=== PATIENT | male | born 2000 | race African-American/Black ===

== ENCOUNTER 2022-06-05 01:20 | Inpatient (IN) | payer MEDICAID ==
[2022-06-05] VITALS (53 sets, daily range): BP systolic 96–137; BP diastolic 56–86
[~2022-06-05] VITALS: Ht 175.3 cm; Wt 57.4 kg
[2022-06-05] MEDS ORDERED: EPINEPHRINE 1:1000 1 MG/ML AMP ONE (01:26)
[2022-06-05] MEDS ORDERED: DIPHENHYDRAMINE 50MG/ML VIAL IV ONE (01:45)
[2022-06-05] MEDS ORDERED: RACEPINEPHRINE 2.25% 0.5ML NEB VIAL HHN ONE (01:45)
[2022-06-05] MEDS ORDERED: TRANEXAMIC ACID 1,000 MG/10 ML IV ONE (01:45)
[2022-06-05] MEDS ORDERED: LORAZEPAM 2MG/ML CPJ IV ONE (01:45)
[2022-06-05] MEDS ORDERED: DEXAMETHASONE 10 MG/ML VIAL IV ONE (01:45)
[2022-06-05] MEDS ORDERED: PROPOFOL 10MG/ML 100ML 100 ML IV ONE ×2 (02:00→05:27)
[2022-06-05] MEDS ORDERED: FENTANYL CITRATE/PF 50MCG/ML 2ML VIAL IV ONE (02:00)
[2022-06-05 02:43] LABS: BASOPHILS % 0.6 % (0.0-2.0); EOSINOPHILS % 0.2 % (0.0-5.0); HEMOGLOBIN. 12.5 g/dL (14.0-18.0); LYMPHOCYTES % 35.9 % (20.0-50.0); MEAN CORPUSCULAR HEMOGLOBIN 22.9 pg (28.0-32.0); MEAN CORPUSCULAR VOLUME 71.3 fL (80.0-94.0); MEAN PLATELET VOLUME 6.7 fl (7.4-10.4); MONOCYTES % 8.3 % (2.0-8.0); PLATELET 435 x1000/uL (130-400); RED BLOOD CELL COUNT 5.47 mill/uL (4.7-6.1); RED CELL DISTRIBUTION WIDTH 16.7 % (11.6-14.6)
[2022-06-05] MEDS ORDERED: FENTANYL 2500MCG/250ML PMX 250 ML IV ONE ×2 (02:45→03:15)
[2022-06-05 02:59] LABS: CHLORIDE 110 mEq/L (98-107)
[2022-06-05] MEDS ORDERED: KCL 20 MEQ/100 ML IV SCH (04:00)
[2022-06-05] MEDS ORDERED: [UNRECOGNIZED DRUG - OTHER] IV SCH (04:00)
[2022-06-05 04:05] LABS: BG BASE EXCESS -7.6 mmol/L (-2.0-2.0); BG CARBOXYHEMOGLOBIN 0.4 % (0.5-1.5); BG DEOXYHEMOGLOBIN 0.5 % (0.0-5.0); BG FRACTION INSPIRED OXYGEN 60; BG HCO3 ACT 18.3 mmol/L (22.0-26.0); BG METHEMOGLOBIN 0.4 % (0.0-1.5); BG OXYGEN SATURATION 99.5 % (92.0-98.5); BG OXYHEMOGLOBIN 98.7 % (94.0-97.0); BG PCO2 38.8 mmHg (35.0-45.0); BG PH 7.292 (7.350-7.450); BG PO2 293.1 mmHg (75.0-100.0); BG SAMPLE SITE RIGHT RADIAL; BG TOTAL HEMOGLOBIN 13.3 g/dL (12.0-18.0); BG VENT MODE VENT - AC
[2022-06-05] MEDS ORDERED: SUCCINYLCHOLINE CHLORIDE 200MG/10ML IV ONE (09:29)
[2022-06-05] MEDS ORDERED: ETOMIDATE 2MG/ML 10ML VIAL IV ONE (09:29)
[2022-06-05] MEDS ORDERED: ONDANSETRON HCL 4MG/2ML INJ IV PRN (09:45)
[2022-06-05] MEDS ORDERED: RACEPINEPHRINE 2.25% 0.5ML NEB VIAL HHN PRN (09:45)
[2022-06-05] MEDS ORDERED: IPRATROPIUM/ALBUTEROL 0.5-3(2.5)MG/3ML NEB HHN PRN (09:45)
[2022-06-05] MEDS ORDERED: PROPOFOL 10MG/ML 100ML 100 ML IV NR (10:00)
[2022-06-05] MEDS ORDERED: PROPOFOL 10MG/ML 100ML 100 ML IV PRN (10:00)
[2022-06-05] MEDS: PROPOFOL 10MG/ML 100ML 100 ML IV PRN ×2 (10:30→19:29)
[2022-06-05] MEDS: FAMOTIDINE 20MG/2ML VIAL IV SCH ×2 (14:50→21:51)
[2022-06-05] MEDS: METHYLPREDNISOLONE SOD SUCC 125 MG/2 ML VIAL IV SCH ×3 (14:51→21:52)
[2022-06-05] MEDS: ENOXAPARIN 40MG/0.4ML SYR SUBCUT SCH (14:52)
[2022-06-05] MEDS: IPRATROPIUM/ALBUTEROL 0.5-3(2.5)MG/3ML NEB HHN SCH (20:38)
[2022-06-06] VITALS (63 sets, daily range): BP systolic 100–139; BP diastolic 54–89
[2022-06-06] MEDS: IPRATROPIUM/ALBUTEROL 0.5-3(2.5)MG/3ML NEB HHN SCH ×6 (00:05→20:15)
[2022-06-06] MEDS: PROPOFOL 10MG/ML 100ML 100 ML IV PRN ×2 (02:52→17:43)
[2022-06-06] MEDS ORDERED: FENTANYL 2500MCG/250ML PMX 250 ML IV PRN (04:30)
[2022-06-06 05:39] LABS: BASOPHILS % 0.1 % (0.0-2.0); HEMATOCRIT. 43.5 % (42.0-52.0); HEMOGLOBIN. 13.9 g/dL (14.0-18.0); LYMPHOCYTES % 11.3 % (20.0-50.0); MEAN CORPUSCULAR HEMOGLOBIN 22.9 pg (28.0-32.0); MEAN CORPUSCULAR VOLUME 71.4 fL (80.0-94.0); MEAN PLATELET VOLUME 7.4 fl (7.4-10.4); MONOCYTES % 8.3 % (2.0-8.0); NEUTROPHILS % 80.3 % (40.0-76.0); PLATELET 459 x1000/uL (130-400); RED CELL DISTRIBUTION WIDTH 16.6 % (11.6-14.6)
[2022-06-06] MEDS: METHYLPREDNISOLONE SOD SUCC 125 MG/2 ML VIAL IV SCH ×4 (05:56→23:31)
[2022-06-06 06:17] LABS: CHLORIDE 104 mEq/L (98-107)
[2022-06-06] MEDS: FAMOTIDINE 20MG/2ML VIAL IV SCH ×2 (09:57→20:34)
[2022-06-06] MEDS: ENOXAPARIN 40MG/0.4ML SYR SUBCUT SCH (09:58)
[2022-06-06 10:15] LABS: BG BASE EXCESS -1.9 mmol/L (-2.0-2.0); BG CARBOXYHEMOGLOBIN 0.4 % (0.5-1.5); BG DEOXYHEMOGLOBIN 2.8 % (0.0-5.0); BG FRACTION INSPIRED OXYGEN 30; BG HCO3 ACT 21.3 mmol/L (22.0-26.0); BG METHEMOGLOBIN 0.3 % (0.0-1.5); BG OXYGEN SATURATION 97.2 % (92.0-98.5); BG OXYHEMOGLOBIN 96.5 % (94.0-97.0); BG PCO2 31.8 mmHg (35.0-45.0); BG PH 7.444 (7.350-7.450); BG PO2 90.6 mmHg (75.0-100.0); BG SAMPLE SITE RIGHT RADIAL; BG TOTAL HEMOGLOBIN 13.7 g/dL (12.0-18.0); BG VENT MODE VENT - AC
[2022-06-06 18:42] LABS: HEPATITIS B SURFACE ANTIGEN NEGATIVE
[2022-06-07] VITALS (56 sets, daily range): BP systolic 94–142; BP diastolic 50–90
[2022-06-07] MEDS: IPRATROPIUM/ALBUTEROL 0.5-3(2.5)MG/3ML NEB HHN SCH ×4 (00:03→16:18)
[2022-06-07] MEDS: PROPOFOL 10MG/ML 100ML 100 ML IV PRN (03:40)
[2022-06-07] MEDS: METHYLPREDNISOLONE SOD SUCC 125 MG/2 ML VIAL IV SCH ×3 (06:14→19:01)
[2022-06-07] MEDS: ENOXAPARIN 40MG/0.4ML SYR SUBCUT SCH (09:47)
[2022-06-07] MEDS: FAMOTIDINE 20MG/2ML VIAL IV SCH (09:47)
[2022-06-07 13:33] LABS: BG BASE EXCESS 1.5 mmol/L (-2.0-2.0); BG CARBOXYHEMOGLOBIN 0.3 % (0.5-1.5); BG DEOXYHEMOGLOBIN 0.7 % (0.0-5.0); BG FRACTION INSPIRED OXYGEN 40; BG HCO3 ACT 25.8 mmol/L (22.0-26.0); BG METHEMOGLOBIN 0.3 % (0.0-1.5); BG OXYGEN SATURATION 99.3 % (92.0-98.5); BG OXYHEMOGLOBIN 98.7 % (94.0-97.0); BG PCO2 39.9 mmHg (35.0-45.0); BG PH 7.429 (7.350-7.450); BG PO2 200.3 mmHg (75.0-100.0); BG SAMPLE SITE RIGHT RADIAL; BG TOTAL HEMOGLOBIN 13.2 g/dL (12.0-18.0); BG VENT MODE VENT - CPAP
[2022-06-07] MEDS ORDERED: ACETAMINOPHEN 325MG TABLET PO PRN (19:00)
== END 2022-06-07 20:00 | disposition left against medical advice (07) | DRG 133 ==
LOC: EDBD 01:20 → ER 01:20 → MICUNO 03:03
PROVIDERS: ADMIT Internal Medicine; ATTEND Internal Medicine
PROC: 5A1945Z Respiratory Ventilation, 24-96 Consecutive Hours (ICD-10-PCS; principal; 2022-06-05)
PROC: 0BH17EZ Insertion of Endotracheal Airway into Trachea, Via Natural or Artificial Opening (ICD-10-PCS; 2022-06-05)
DX: J96.01 Acute respiratory failure with hypoxia (principal); E87.20 Acidosis, unspecified; E87.8 Other disorders of electrolyte and fluid balance, not elsewhere classified; T78.2XXA Anaphylactic shock, unspecified, initial encounter; D64.9 Anemia, unspecified; E87.6 Hypokalemia; F41.9 Anxiety disorder, unspecified; K12.2 Cellulitis and abscess of mouth; Z53.29 Procedure and treatment not carried out because of patient's decision for other reasons; Z78.1 Physical restraint status
CPT/HCPCS: 31500; 36415; 36600; 71045; 80048; 80053; 82375; 82805; 84478; 85025; 86803; 87340; 94002; 94003; 94640; 99285; J0330; J1100; J1200; J1650; J2060; J2405; J2704; J2930; J3010; J3480; J3490